=== PATIENT | female | born 1940 | race Asian ===

== ENCOUNTER 2017-11-13 12:32 | Emergency (ER) | payer MEDICAID ==
[~2017-11-13] VITALS: Ht 160 cm; Wt 59.4 kg
[2017-11-13 12:46] VITALS: Ht 160 cm; Wt 59.4 kg
[2017-11-13 14:44] VITALS: BP 138/74
== END 2017-11-13 14:45 | disposition home or self-care (01) ==
LOC: ED 12:32
DX: S09.90XA Unspecified injury of head, initial encounter (principal); I10 Essential (primary) hypertension; F32.9 Major depressive disorder, single episode, unspecified; E78.00 Pure hypercholesterolemia, unspecified; Z88.0 Allergy status to penicillin; W01.0XXA Fall on same level from slipping, tripping and stumbling without subsequent striking against object, initial encounter; Y93.89 Activity, other specified; Y92.89 Other specified places as the place of occurrence of the external cause; Y99.8 Other external cause status